=== PATIENT | male | born 1980 | race Asian ===

== ENCOUNTER 2019-08-28 06:44 | Day surgery (SDC) | payer BC ==
[2019-08-26 11:21] LABS: Urine Bacteria NONE SEEN /hpf (None Seen); Urine Blood Negative /uL (Negative); Urine Specific Gravity 1.019 (1.001-1.035); Urine WBC <1 /hpf (0 - 3)
[2019-08-26 11:23] LABS: Basophils # (auto) 0 10 ^3/uL (0-0.2); Basophils % (auto) 0.6 % (0.0-2.0); Eosinophils # (auto) 0.2 10 ^3/uL (0-0.8); Eosinophils % (auto) 3.3 % (0.0-7.0); Hematocrit 47.8 % (41.0-53.0); Hemoglobin 15.9 g/dL (13.5-17.5); Lymphocytes # (auto) 1.7 10 ^3/uL (0.4-5.4); Lymphocytes % (auto) 34.4 % (10.0-50.0); Mean Corpuscular Hemoglobin 28.5 pg (28.0-32.0); Mean Corpuscular Hgb Conc. 33.2 g/dL (32.0-36.0); Mean Corpuscular Volume 85.8 fL (80.0-100.0); Monocytes # (auto) 0.3 10 ^3/uL (0-1.3); Monocytes % (auto) 6.7 % (0.0-12.0); Neutrophils # (auto) 2.7 10 ^3/uL (1.6-8.6); Nucleated Red Blood Cells % 0.1 %; Platelet Count (auto) 226 10^3/uL (140-450); Red Blood Cells 5.57 10^6/uL (4.5-5.90); Red Cell Distribution Width 14.6 % (11.8-14.3); White Blood Cell 4.9 10^3/uL (4.4-10.8)
[2019-08-26 11:32] LABS: Calcium 8.8 mg/dL (8.5-10.1)
[2019-08-26 11:36] LABS: BUN/Creatinine Ratio 10.6; Bilirubin, Total 0.4 mg/dL (0.2-1.0); Total Protein 7.8 g/dL (6.4-8.2)
[2019-08-26 11:39] LABS: INR 0.99 (0.9-1.15); Partial Thromboplastin Time 27.4 sec (23.64-32.05)
[~2019-08-28] VITALS: Ht 175.3 cm; Wt 122.5 kg
[~2019-08-28 06:44] MED LIST: OLME20TA53 PO
[2019-08-28] MEDS ORDERED: ceFAZolin 1GM/50ML 50 ML IV ONE (07:41)
[2019-08-28] MEDS ORDERED: ROPIVACAINE 0.5% (5MG/ML) 20ML AMPULE IJ ONE (08:17)
[2019-08-28] MEDS ORDERED: methylPREDNISolone ACETATE 80 MG/ML VL ONE (08:17)
[2019-08-28] MEDS ORDERED: LIDOCAINE 1% (LOCAL ANESTH.) PF 5ml SDV ONE (08:23)
[2019-08-28] MEDS ORDERED: SUCCINYLCHOLINE CHLORIDE 20 MG/ML 10ML VIAL IV ONE (08:23)
[2019-08-28] MEDS ORDERED: MIDAZOLAM HCL 1MG/1ML-2 ML VIAL ONE (08:29)
[2019-08-28] MEDS ORDERED: ROCURONIUM 10MG/ML 10ML VIAL IV ONE (08:29)
[2019-08-28] MEDS ORDERED: METOCLOPRAMIDE HCL 5MG/ml INJ 2ml VIAL ONE (08:37)
[2019-08-28] MEDS ORDERED: PROPOFOL 10 MG/ML 20 ML IV ONE (08:38)
[2019-08-28] MEDS ORDERED: fentaNYL CITRATE 100 MCG/2 ML VL ONE (08:47)
[2019-08-28] MEDS ORDERED: ePHEDrine SULFATE 50 MG/ML AMP ONE (08:49)
[2019-08-28] MEDS ORDERED: STERILE WATER 20 ML ONE (08:49)
[2019-08-28] MEDS ORDERED: PHENYLEPHRINE HCL 10 MG/ML VL ONE (08:49)
[2019-08-28] MEDS ORDERED: HYDROmorphone HCL 2 MG/ML VL IV PRN ×2 (09:00)
[2019-08-28] MEDS ORDERED: NALOXONE HCL 0.4 MG/ML VIAL IV PRN (09:00)
[2019-08-28] MEDS ORDERED: ONDANSETRON HCL 4 MG/2 ML VIAL IV PRN (09:00)
[2019-08-28 10:37] VITALS: BP 123/78
== END 2019-08-28 10:59 | disposition home or self-care (01) ==
LOC: SUR 06:44
PROVIDERS: ATTEND Podiatrist Foot & Ankle Surgery
DX: S93.491A Sprain of other ligament of right ankle, initial encounter (principal); M19.90 Unspecified osteoarthritis, unspecified site; I10 Essential (primary) hypertension; K21.9 Gastro-esophageal reflux disease without esophagitis; G47.33 Obstructive sleep apnea (adult) (pediatric); E66.01 Morbid (severe) obesity due to excess calories; Z11.59 Encounter for screening for other viral diseases; X58.XXXA Exposure to other specified factors, initial encounter; Y93.89 Activity, other specified; Y92.89 Other specified places as the place of occurrence of the external cause; Y99.8 Other external cause status
CPT/HCPCS: 27698; 36415; 80053; 81001; 85025; 85610; 85730; J0330; J0690; J1040; J2250; J2370; J2704; J2765; J2795; J3010; U0003

== ENCOUNTER 2020-07-20 23:15 | Inpatient (IN) | payer BC ==
[~2020-07-20] VITALS: Ht 175.3 cm; Wt 130.8 kg
[2020-07-21 00:04] LABS: Basophils # (auto) 0 10 ^3/uL (0-0.2); Basophils % (auto) 0.5 % (0.0-2.0); Eosinophils # (auto) 0.1 10 ^3/uL (0-0.8); Eosinophils % (auto) 1.8 % (0.0-7.0); Hematocrit 43.6 % (41.0-53.0); Lymphocytes # (auto) 1.8 10 ^3/uL (0.4-5.4); Lymphocytes % (auto) 28.9 % (10.0-50.0); Mean Corpuscular Hemoglobin 29.5 pg (28.0-32.0); Mean Corpuscular Hgb Conc. 34.3 g/dL (32.0-36.0); Mean Corpuscular Volume 85.9 fL (80.0-100.0); Monocytes # (auto) 0.5 10 ^3/uL (0-1.3); Monocytes % (auto) 7.6 % (0.0-12.0); Neutrophils # (auto) 3.9 10 ^3/uL (1.6-8.6); Neutrophils % (auto) 61.2 % (37.0-80.0); Nucleated Red Blood Cells % 0.1 %; Platelet Count (auto) 227 10^3/uL (140-450); Red Blood Cells 5.08 10^6/uL (4.5-5.90); Red Cell Distribution Width 13.8 % (11.8-14.3); White Blood Cell 6.3 10^3/uL (4.4-10.8)
[2020-07-21 00:23] LABS: BUN/Creatinine Ratio 11.6; Calcium 8.6 mg/dL (8.5-10.1); Potassium 3.8 mmol/L (3.5-5.1)
[2020-07-21] MEDS ORDERED: TEMAZEPAM 15 MG CAP PO PRN (02:30)
[2020-07-21] MEDS ORDERED: HYDROcodone-ACET 5/325MG TAB PO PRN (02:30)
[2020-07-21] MEDS ORDERED: ONDANSETRON HCL 4 MG/2 ML VIAL IV PRN (02:30)
[2020-07-21 02:31] LABS: Partial Thromboplastin Time 28.2 sec (23.0-31.2)
[2020-07-21] MEDS ORDERED: cloNIDine HCL 0.1 MG TAB PO PRN (03:15)
[2020-07-21] MEDS ORDERED: IBUPROFEN 800 MG TAB PO ONE (03:45)
[2020-07-21] MEDS: CLINDAMYCIN 600MG IV 50 ML IV SCH ×3 (06:26→22:00)
[2020-07-21] MEDS ORDERED: FAMOTIDINE 20 MG TAB PO SCH (10:00)
[2020-07-21] MEDS: ACETAMINOPHEN 325 MG TAB PO PRN (15:35)
[2020-07-21 15:44] VITALS: BP 125/71
[2020-07-21 16:44] VITALS: BP 125/71
[2020-07-21 20:00] VITALS: BP 132/68
[2020-07-21 22:00] VITALS: BP 132/68
[2020-07-22] VITALS (7 sets, daily range): BP systolic 108–128; BP diastolic 56–76
[2020-07-22] MEDS: CLINDAMYCIN 600MG IV 50 ML IV SCH ×3 (06:00→22:00)
[2020-07-22 10:41] LABS: Basophils # (auto) 0 10 ^3/uL (0-0.2); Basophils % (auto) 0.4 % (0.0-2.0); Eosinophils # (auto) 0.1 10 ^3/uL (0-0.8); Eosinophils % (auto) 1.7 % (0.0-7.0); Hematocrit 46.4 % (41.0-53.0); Hemoglobin 15.7 g/dL (13.5-17.5); Lymphocytes # (auto) 1.3 10 ^3/uL (0.4-5.4); Lymphocytes % (auto) 26.4 % (10.0-50.0); Mean Corpuscular Hemoglobin 29.1 pg (28.0-32.0); Mean Corpuscular Hgb Conc. 33.8 g/dL (32.0-36.0); Mean Corpuscular Volume 86.3 fL (80.0-100.0); Monocytes # (auto) 0.4 10 ^3/uL (0-1.3); Monocytes % (auto) 8.6 % (0.0-12.0); Neutrophils # (auto) 3.1 10 ^3/uL (1.6-8.6); Neutrophils % (auto) 62.9 % (37.0-80.0); Nucleated Red Blood Cells % 0.2 %; Platelet Count (auto) 239 10^3/uL (140-450); Red Blood Cells 5.38 10^6/uL (4.5-5.90); Red Cell Distribution Width 13.8 % (11.8-14.3); White Blood Cell 4.9 10^3/uL (4.4-10.8)
[2020-07-22 11:02] LABS: BUN/Creatinine Ratio 12.5; Calcium 9.2 mg/dL (8.5-10.1); Potassium 4.2 mmol/L (3.5-5.1)
[2020-07-22] MEDS ORDERED: ceFAZolin 1GM VL ONE ×2 (13:28→14:08)
[2020-07-22] MEDS ORDERED: ceFAZolin 1GM/50ML 100 ML IV ONE (13:28)
[2020-07-22] MEDS ORDERED: ROPIVACAINE 0.5% (5MG/ML) 20ML AMPULE IJ ONE (13:28)
[2020-07-22] MEDS ORDERED: MIDAZOLAM HCL 1MG/1ML-2 ML VIAL ONE (13:30)
[2020-07-22] MEDS ORDERED: SODIUM CHLORIDE LOCK 10 ML ONE (13:30)
[2020-07-22] MEDS ORDERED: PROPOFOL 10 MG/ML 20 ML IV ONE (13:30)
[2020-07-22] MEDS ORDERED: fentaNYL CITRATE 100 MCG/2 ML VL ONE (13:30)
[2020-07-22] MEDS ORDERED: ONDANSETRON HCL 4 MG/2 ML VIAL ONE (13:30)
[2020-07-22] MEDS ORDERED: METOCLOPRAMIDE HCL 5MG/ml INJ 2ml VIAL IV PRN (13:45)
[2020-07-22] MEDS ORDERED: MORPHINE SULF INJ 2 MG/ML SYRINGE 1ML IV PRN (13:45)
[2020-07-22] MEDS ORDERED: HYDROmorphone HCL 2 MG/ML VL IV PRN (13:45)
[2020-07-22] MEDS: ACETAMINOPHEN 325 MG TAB PO PRN (18:45)
[2020-07-23 05:00] VITALS: BP 118/71
[2020-07-23] MEDS: CLINDAMYCIN 600MG IV 50 ML IV SCH ×3 (06:00→21:39)
[2020-07-23 09:00] VITALS: BP 138/67
[2020-07-23 13:00] VITALS: BP 124/75
[2020-07-23] MEDS ORDERED: POTASSIUM PHOSPHATE 44 MEQ in D5W 5% 250 ML IV ONE (14:00)
[2020-07-23 16:45] VITALS: BP 136/65
[2020-07-23 20:20] VITALS: BP 125/77
[2020-07-23 22:00] VITALS: BP 125/77
[2020-07-24 05:00] VITALS: BP_SYST 119; BP_SYST 144; BP_DIAS 67; BP_DIAS 79
[2020-07-24] MEDS: CLINDAMYCIN 600MG IV 50 ML IV SCH ×2 (06:35→13:43)
[2020-07-24 09:00] VITALS: BP 137/77
[2020-07-24] MEDS: ACETAMINOPHEN 325 MG TAB PO PRN (10:50)
[2020-07-24] MEDS ORDERED: AMOX-277 PO (12:20)
[2020-07-24 13:00] VITALS: BP 122/72
[2020-07-24 16:34] VITALS: BP 123/77
== END 2020-07-24 16:46 | disposition home or self-care (01) | DRG 603 ==
LOC: ER 23:15 → OVERFLOW 07-21 02:27 → CENTRAL 07-21 15:08
PROVIDERS: ADMIT Nurse Practitioner; ATTEND Internal Medicine
PROC: 0Y9K0ZZ Drainage of Right Ankle Region, Open Approach (ICD-10-PCS; principal; 2020-07-22 14:00)
DX: L03.115 Cellulitis of right lower limb (principal); Z68.41 Body mass index [BMI] 40.0-44.9, adult; L02.415 Cutaneous abscess of right lower limb; Z20.822 Contact with and (suspected) exposure to COVID-19; I10 Essential (primary) hypertension; E66.01 Morbid (severe) obesity due to excess calories; S93.421A Sprain of deltoid ligament of right ankle, initial encounter; X58.XXXA Exposure to other specified factors, initial encounter; Y93.89 Activity, other specified; Y92.89 Other specified places as the place of occurrence of the external cause; Y99.8 Other external cause status
CPT/HCPCS: 36415; 73700; 80048; 82947; 83036; 85025; 85610; 85730; 87070; 87075; 87205; 87426; 96365; G0378; J0690; J2250; J2405; J2704; J3490